=== PATIENT | female | born 1955 | race Caucasian/White ===

== ENCOUNTER → 2018-12-02 08:05 | Outpatient (CLI) | payer OTHER, SELFPAY ==
--- NOTE | 2018-12-02 | DI.MG.S_ITS ---
BILATERAL DIGITAL SCREENING MAMMOGRAM 3D/2D WITH CAD: 12/02/2018 CLINICAL: Routine screening. Family history of breast cancer. Comparison is made to exams dated: 11/06/2017 mammogram, 09/18/2016 mammogram, and 09/17/2015 mammogram - [facility]. There are scattered fibroglandular elements in both breasts. Current study was also evaluated with a Computer Aided Detection (CAD) system. No significant masses, calcifications, or other findings are seen in either breast. There has been no significant interval change. IMPRESSION: NEGATIVE There is no mammographic evidence of malignancy. A 1 year screening mammogram is recommended. This exam was interpreted at Station ID: [id number]. NOTE: For mammograms, a report in lay terms will be sent to the patient. Approximately 15% of breast malignancies will not be visualized mammographically. In the management of a palpable breast mass, a negative mammogram must not discourage biopsy of a clinically suspicious lesion. Electronically Signed By: Celso storey/vladimir:12/02/2018 15:59:12 letter sent: Normal Exam ACR BI-RADS Category 1: Negative [id number]
== END ==
PROVIDERS: Family Provider Physician Assistant; PCP Physician Assistant; Visit Provider Physician Assistant
DX: Z12.31 Encounter for screening mammogram for malignant neoplasm of breast (principal); Z80.3 Family history of malignant neoplasm of breast
CPT/HCPCS: 77063; 77067

== ENCOUNTER → 2020-04-30 13:40 | Outpatient (CLI) | payer OTHER, SELFPAY | PROVIDERS: Family Provider Physician Assistant; PCP Nurse Practitioner Family; Referring Provider Physician Assistant; Visit Provider Physician Assistant | DX: M85.852 Other specified disorders of bone density and structure, left thigh (principal); Z78.0 Asymptomatic menopausal state; E28.39 Other primary ovarian failure; Z82.62 Family history of osteoporosis; Z87.891 Personal history of nicotine dependence | CPT/HCPCS: 77080 ==

== ENCOUNTER → 2020-05-12 09:36 | Outpatient (CLI) | payer OTHER, SELFPAY ==
--- NOTE | 2020-05-12 | DI.RAD.S_ITS ---
PROCEDURE: XR THORACIC SPINE 2V INDICATIONS: LBP TECHNIQUE: 3 views of the thoracic spine were acquired. COMPARISON: [facility], , THORACIC SPINE 3 VIEWS, 08/01/2007, 11:12. FINDINGS: Bones: No fractures or dislocations. No suspicious bony lesions. Diffuse spondylosis and bulky osteophyte formation Soft tissues: No paravertebral stripe thickening. IMPRESSION: No fracture Diffuse spondylosis Dictated by: Gumaro Cooper M.D. on 05/12/2020 at 10:29 Approved by: Gumaro Cooper M.D. on 05/12/2020 at 10:30
--- NOTE | 2020-05-12 | DI.RAD.S_ITS ---
PROCEDURE: XR LUMBAR SPINE 2-3V INDICATIONS: LBP TECHNIQUE: 3 views of the lumbar spine were acquired. COMPARISON: None. FINDINGS: Bones: No fracture or focal osseous destruction. Multilevel degenerative endplate sclerosis and spurring. Diffuse facet arthropathy. Straightening of the normal lordotic curvature. Grade 1 anterolisthesis of L4 on L5. Mild diffuse narrowing of the lumbar disc spaces Soft tissues: Overlying bowel gas pattern is normal. No suspicious soft tissue calcifications. IMPRESSION: Grade 1 anterolisthesis of L4-L5. Diffuse mild lumbar spondylosis and facet arthropathy Dictated by: Gumaro Cooper M.D. on 05/12/2020 at 10:30 Approved by: Gumaro Cooper M.D. on 05/12/2020 at 10:34
--- NOTE | 2020-05-12 | DI.RAD.S_ITS ---
PROCEDURE: XR SACRUM COCCYX MIN 2V INDICATIONS: LBP TECHNIQUE: 3 views of the sacrum and coccyx acquired. COMPARISON: None. FINDINGS: Bones: No fractures or dislocations. No suspicious bony lesions. Mild sacroiliac scattered subchondral sclerosis. Subtle focal lucencies along the right SI joint Soft tissues: Visualized bowel gas pattern is normal. No suspicious soft tissue densities. IMPRESSION: Mild degenerative sacroiliac sclerosis, without ankylosis. Subtle focal lucencies along the right SI joint raise the possibility of early erosion although technically nonspecific. This can be further assessed with dedicated MRI as clinically warranted. Dictated by: Gumaro Cooper M.D. on 05/12/2020 at 10:57 Approved by: Gumaro Cooper M.D. on 05/12/2020 at 11:11
== END ==
PROVIDERS: Family Provider Physician Assistant; PCP Physician Assistant; Referring Provider Physician Assistant; Visit Provider Physician Assistant
DX: M54.6 Pain in thoracic spine (principal); M54.5 Low back pain; M47.814 Spondylosis without myelopathy or radiculopathy, thoracic region; M47.816 Spondylosis without myelopathy or radiculopathy, lumbar region; M43.16 Spondylolisthesis, lumbar region; R25.2 Cramp and spasm
CPT/HCPCS: 72070; 72100; 72220

== ENCOUNTER → 2024-03-06 06:52 | Outpatient (CLI) | payer MEDICARE, OTHER, SELFPAY ==
--- NOTE | 2024-03-06 06:54 | DI.MG.S_ITS ---
BILATERAL DIGITAL SCREENING MAMMOGRAM 3D/2D WITH CAD: 03/06/2024 CLINICAL: Routine screening. Comparison is made to exams dated: 09/05/2022 mammogram - [facility], 12/02/2018 mammogram, and 11/06/2017 mammogram - [facility]. There are scattered areas of fibroglandular density in both breasts (category b / 25%-50% glandular tissue). Current study was also evaluated with a Computer Aided Detection (CAD) system. No significant masses, calcifications, or other findings are seen in either breast. There has been no significant interval change. IMPRESSION: NEGATIVE There is no mammographic evidence of malignancy. A 1 year screening mammogram is recommended. Based on the Tyrer Cuzick model (a risk assessment model) the patient's lifetime risk is 7.1% and her 10 year risk is 3.9%. According to the ACR, ACS, and NCCN guidelines, an annual breast MRI exam along with mammogram is recommended if the patient's lifetime risk is 20% or greater. This exam was interpreted at Station ID: [id number]. NOTE: For mammograms, a report in lay terms will be sent to the patient. Approximately 15% of breast malignancies will not be visualized mammographically. In the management of a palpable breast mass, a negative mammogram must not discourage biopsy of a clinically suspicious lesion. Electronically Signed By: Rachel Nielson M.D., Ph.D. flash/vladimir:03/06/2024 22:36:55 letter sent: Normal Exam ACR BI-RADS Category 1: Negative 3341F
== END ==
LOC: MAMMO 06:53
PROVIDERS: Family Provider Physician Assistant; PCP Nurse Practitioner Family; Referring Provider Nurse Practitioner Family; Visit Provider Nurse Practitioner Family
DX: Z12.31 Encounter for screening mammogram for malignant neoplasm of breast (principal); R92.323 Mammographic fibroglandular density, bilateral breasts
CPT/HCPCS: 77063; 77067

== ENCOUNTER 2025-03-06 23:31 | Emergency (ER) | payer MEDICARE, OTHER, SELFPAY ==
[2025-03-06 23:54] VITALS: BP 165/81; PULSE 88; RESP 17; TEMP 36.4; O2SAT 97; BMI 32.5
[2025-03-07] VITALS (8 sets, daily range): BP systolic 138–150; BP diastolic 72; PULSE 78–90; O2SAT 88–98
[2025-03-07 01:18] LABS: Bacteria Urine None Seen; Culture Indicated Urine Cult Not Indicated; RBC Urine 0-1/HPF (0-5/HPF); Squamous Epithelial Cell Urine 0-1 /HPF (0-5/HPF); Urine Volume 10mL (spun); WBC Urine None Seen (0-5/HPF)
--- NOTE | 2025-03-07 02:44 | ED.BACK ---
HPI - Back Pain/Injury General Chief Complaint: Back Pain/Injury Stated Complaint: back px Time Seen by Provider: 03/07/25 02:32 Source: patient History of Present Illness HPI Narrative: 70-year-old woman with no significant medical history presents with 36 hours of right flank and back pain radiating into the right side of her abdomen with complaints of abdominal distention bloating and tenderness. She had a normal bowel movement this morning. He has had 2 brief episodes of vaginal itching resolve spontaneously. No fevers, chills no actual vomiting. No unexplained weight loss, chest pain, palpitations or dyspnea. Related Data Home Medications Medication Instructions Recorded Confirmed acetaminophen 325 mg tablet 325 mg PO Q6H PRN 12/18/19 01/23/20 (Tylenol) Previous Rx's Medication Instructions Recorded clonazepam 1 mg tablet 0.5 - 1 mg (0.5 - 1 x 1 mg) PO HS 08/12/18 #60 tabs cyclobenzaprine 10 mg tablet 10 mg PO BEDTIME #30 tabs 12/11/19 naproxen 500 mg tablet 500 mg PO BID #60 tabs 12/18/19 tizanidine 2 mg tablet See Rx Instructions PO TID PRN 01/23/20 muscle spasticity #30 tabs oxycodone-acetaminophen 5 mg-325 1 tab PO Q6H PRN pain #14 tabs 03/07/25 mg tablet Allergies Allergy/AdvReac Type Severity Reaction Status Date / Time tramadol [TRAMADOL] Allergy Severe HALLUCINATIONS Verified 01/23/20 11:36 AND NIGHTMARES morphine [MORPHINE] Allergy Unknown PT STATES Verified 01/23/20 11:36 THAT THE REST OF HER FAMILY IS ALLERGIC TO IT Review of Systems Review of Systems Narrative: Pertinent positive and negative findings as per HPI Patient History Medical History (Updated 03/07/25 @ 06:12 by Caterina Clark MD) Osteopenia (04/2020) Family History (Updated 05/03/17 @ 00:00 by Rowan Kolb PA-C) Mother Arthritis Essential hypertension Hypothyroidism Hyperlipidemia Grandmother Rheumatoid arthritis Social History Smoking Status: Never smoker Smoking Status: Never smoker Exam Initial Vital Signs Initial Vital Signs: Vital Signs Temperature 97.5 F L 03/06/25 23:54 Pulse Rate 88 03/06/25 23:54 Respiratory Rate 17 03/06/25 23:54 Blood Pressure 165/81 H 03/06/25 23:54 Pulse Oximetry 97 03/06/25 23:54 Oxygen Delivery Method Room Air 03/06/25 23:54 General: Healthy appearing, in mild pain, standing up in the room as this is more comfortable for her. Able to give a complete and coherent history. Well-nourished well-developed HEENT: Moist mucous membranes, normal sclera with reactive pupils, Respiratory: Lungs are clear to auscultation, no wheezing no rales no rhonchi. Full and symmetrical air movement Cardiac: Regular rate and rhythm no murmurs no bruits Abdomen: Soft, mildly distended, mild right lower quadrant tenderness, no rebound or guarding, tender in the right flank without paraspinous spasm or tenderness along the thoracic spine. Skin: Warm and dry, no rashes in areas of describe pain Neurologic: Grossly neurologically intact with no obvious asymmetries or abnormalities Extremities: No trauma, well perfused Psych: Cooperative, appropriate insight and affect Course Orders Ordered: ED Orders 03/07/25 00:30 Urine Microscopic Stat 03/07/25 02:51 CT abdomen pelvis w con Stat 03/07/25 03:08 Complete Blood Count AUTO DIFF Stat Comprehensive Metabolic Panel Stat Lactate (Lactic Acid) Stat Magnesium Stat 03/07/25 03:15 Urinalysis and Microscopic Stat Hydromorphone HCl (Hydromorphone 0.5 Mg Inj) 0.5 mg IV Q15MIN PRN PRN Reason: Pain, Last Admin: 03/07/25 03:06 Dose: 0.5 mg Documented By: MR Discontinued Medications Sodium Chloride (Normal Saline 0.9%) 1,000 mls @ 1,000 mls/hr IV BOLUS ONE Stop: 03/07/25 03:50 Last Infusion: 03/07/25 03:55 Dose: Infused Documented By: Admin: 03/07/25 03:06 Dose: 1,000 mls/hr Documented By: Ondansetron HCl (Ondansetron 4 Mg/2 Ml Inj) 4 mg IV NOW ONE Stop: 03/07/25 02:52 Last Admin: 03/07/25 03:05 Dose: 4 mg Documented By: MR Vital Signs Vital signs: Vital Signs - 8 hr 03/06/25 23:54 03/07/25 03:37 03/07/25 03:58 Temperature 97.5 F L Pulse Rate 88 78 80 Respiratory Rate 17 Blood Pressure 165/81 H Pulse Oximetry 97 88 L 94 Oxygen Delivery Method Room Air 03/07/25 04:11 03/07/25 04:11 03/07/25 04:30 Temperature Pulse Rate 90 84 Respiratory Rate Blood Pressure 150/72 H Pulse Oximetry 95 93 Oxygen Delivery Method 03/07/25 05:00 03/07/25 05:30 Temperature Pulse Rate 85 81 Respiratory Rate Blood Pressure Pulse Oximetry 88 L 92 Oxygen Delivery Method MDM - Back Pain/Injury Lab Data 03/07/25 03:08 03/07/25 03:08 Labs: Lab Results 03/07/25 03/07/25 Range/Units 00:30 03:08 WBC 5.6 (4.5-11.0) X10^3/uL RBC 4.41 (4.0-5.2) X10^6/uL Hgb 14.1 (12.0-16.0) g/dL Hct 41.3 (36-46) % MCV 93.7 (80-100) fL MCH 32.0 (26-34) PG MCHC 34.2 (30-36) % RDW 12.8 (11.6-14.8) % Plt Count 249 (150-400) X10^3/uL Neut % (Auto) 46.6 L (50-75) % Lymph % (Auto) 39.7 (25-40) % Colbert % (Auto) 7.6 (3-14) % Eos % (Auto) 4.9 H (2-4) % Baso % (Auto) 1.2 (0-2) % Neut # (Auto) 2600 (2091-9060) /uL Lymph # (Auto) 2200 (9129-3959) /uL Colbert # (Auto) 400 (0-900) /uL Eos # (Auto) 300 (0-450) /uL Baso # (Auto) 100 (0-100) /uL Sodium 140 (137-145) mmol/L Potassium 4.3 (3.4-5.1) mmol/L Chloride 105 (98-107) mmol/L Carbon Dioxide 25 (22-32) mmol/L BUN 24 H (7-17) mg/dL Creatinine 0.81 (0.52-1.04) mg/dL Estimated GFR > 60 (>60) mL/min BUN/Creatinine Ratio 29.6 H (6-22) Glucose 99 (80-110) mg/dL Lactate 0.9 (0.7-2.1) mmol/L Calcium 9.9 (8.4-10.2) mg/dL Magnesium 2.0 (1.6-2.3) mg/dL Total Bilirubin 1.3 (0.2-1.3) mg/dL AST 33 (14-36) IU/L ALT 28 (<35) IU/L Alkaline Phosphatase 63 (38-126) U/L Total Protein 8.0 (6.3-8.2) g/dL Albumin 4.7 (3.5-5.0) g/dL Globulin 3.3 (1.7-4.1) g/dL Albumin/Globulin Ratio 1.4 (1.0-2.8) Urine RBC 0-1/hpf (0-5/HPF) Urine WBC None seen (0-5/HPF) Ur Squamous Epith Cells 0-1 /hpf (0-5/HPF) Urine Bacteria None seen (None) Ur Culture Indicated? Cult not indicated Vol Urine Centrifuged 10ml (spun) Urine Dip Bedside Urine Glucose Negative Bedside Urine Bilirubin - Negative Bedside Urine Ketone - Negative Urine Specific Masterson 1.030 Bedside Urine Occult Blood +/- Bedside Urine pH 6.0 Bedside Urine Protein - Negative Bedside Urine Urobilinogen - Negative Bedside Urine Nitrite - Negative Bedside Urine Leukocytes - Negative Esterase MDM Narrative Medical decision making narrative: CC: Right flank and right-sided abdominal pain Data collected from: patient Differential considered: Kidney stone, constipation, patient has already had her appendix removed, neoplastic process Exam documented above, pertinent findings include: Patient is alert and appropriate. Tender in the right flank radiating into the right lower quadrant without rebound or guarding. No skin changes to suggest zoster Lab Test results independently reviewed as above. Pertinent findings: CBC is unremarkable Chemistries are reassuring Imaging studies independently reviewed: CT scan of the abdomen shows cholelithiasis without acute cholecystitis. No other obvious findings. No kidney abnormalities or kidney stones Treatments: Half a mg of Dilaudid, 1 L of saline, 4 mg of Zofran Discussion: 70-year-old woman with right sided abdominal pain radiating through to the flank. CT scan suggests gallbladder colic as the source of her pain. No acute cholecystitis. No pyelonephritis, kidney stones or hydronephrosis. She is not particularly constipated, no other explanations for her symptoms are otherwise appreciated. Have suggested outpatient follow up with our general surgery clinic to discuss possibility of elective cholecystectomy. Questions are answered. We discussed treatment as following the lowest fat diet as possible to minimize symptoms. Discharge Plan Departure Patient Disposition: Home Clinical Impression: Gallbladder colic Instructions: DI for Gallstones Activity Restrictions/Additional Instructions: Thank you for coming in today Your workup did not show signs of significant bacterial infection, no acute surgical findings such as masses, tumors or obstructions. There were no kidney stones or kidney issues found CT scan does show gallstones in your gallbladder without obstruction or acute gallbladder infection Eating the lowest fat diet you are able to tolerate can help decrease the pain symptoms. Using 400 mg of ibuprofen (2 dtiy-enr-zrwdnpa pills) and 1 Tylenol every 6 hours can be very helpful in controlling pain. For severe pain you can use 400 mg of ibuprofen and 1 Percocet. Percocet is a narcotic and can make constipation worse. This prescription was electronically transmitted to [facility] in [place] I would recommend that you follow up with our [facility] office. Please call to schedule an appointment at [phone]. You can explain to them that you are in the emergency department and diagnosed with gallstones and would like to discuss elective outpatient treatment for this If you find that you are getting worse or develop any new symptoms, please feel free to return to the emergency department for further evaluation. Prescriptions: New oxycodone-acetaminophen 5-325 mg tablet 1 tab PO Q6H PRN (Reason: pain) Qty: 14 0RF No Action cyclobenzaprine 10 mg tablet 10 mg PO BEDTIME Qty: 30 0RF clonazepam 1 mg tablet 0.5 - 1 mg PO HS Qty: 60 0RF Rx Instructions: Take one tablet at bedtime as needed for sleep - Must last 60 days (2 months) acetaminophen [Tylenol] 325 mg tablet 325 mg PO Q6H PRN naproxen 500 mg tablet 500 mg PO BID Qty: 60 0RF Rx Instructions: stop other NSAIDs, take with food tizanidine 2 mg tablet See Rx Instructions PO TID PRN (Reason: muscle spasticity) Qty: 30 1RF Rx Instructions: 1-4mg PO three times a day PRN; Referrals: Zohra Campbell ARNP [Primary Care Provider] - Stand Alone Forms: Patient Portal/API/Survey
--- NOTE | 2025-03-07 02:51 | DI.CT.S_ITS ---
PROCEDURE: CT ABDOMEN PELVIS W CON INDICATIONS: Right flank and abdominal pain TECHNIQUE: After the administration of intravenous contrast, axial sections acquired from the lung bases to the pubic symphysis. Coronal and sagittal reformats were performed. For radiation dose reduction, the following was used: automated exposure control, adjustment of mA and/or kV according to patient size. COMPARISON: None. FINDINGS: Image quality: Diagnostic. Lower Chest: No significant findings. ABDOMEN: Liver: No solid mass. Gallbladder: Cholelithiasis without evidence of acute cholecystitis. Biliary ducts: No biliary dilation. Pancreas: No ductal dilation. Spleen: Size is within normal limits. Adrenal Glands: No adrenal nodules. Kidneys and Ureters: No hydronephrosis. No solid mass. No complex renal cystic lesion which requires follow up. Stomach and Bowel: Normal colonic caliber, without significant wall thickening. The appendix is not seen. A few colonic diverticula. Peritoneum: No abnormal intraperitoneal fluid. No free air. Ventral Wall: No significant ventral hernia. Abdominal Nodes: No retroperitoneal or mesenteric adenopathy by size criteria. Vessels: Aorta and inferior vena cava are normal in size. PELVIS: Pelvic Organs: Unremarkable. Bladder: No bladder wall thickening, accounting for underdistention. Pelvic Nodes: No enlarged lymph nodes. Miscellaneous: No inguinal hernias are seen. Bones: No aggressive osseous abnormality. IMPRESSION: Cholelithiasis without evidence of acute cholecystitis. Interpretation is concordant with overnight read. Dictated by: Akhil Ruano M.D. on 03/07/2025 at 8:10 Approved by: Akhil Ruano M.D. on 03/07/2025 at 8:12
[2025-03-07] MEDS: ONDANSETRON 4 MG/2 ML INJ IV (03:05)
[2025-03-07] MEDS: HYDROMORPHONE 0.5 MG INJ IV (03:06)
[2025-03-07] MEDS: SODIUM CHLORIDE 0.9% 1,000 ML 1000 ML IV (03:06)
[2025-03-07 03:14] LABS: Add Manual Diff / Slide Review NO; Basophils Absolute Auto 100 /uL (0-100); Basophils Percent Auto 1.2 % (0-2); Eosinophils Absolute Auto 300 /uL (0-450); Eosinophils Percent Auto 4.9 % (2-4); Hematocrit 41.3 % (36-46); Hemoglobin 14.1 g/dL (12.0-16.0); Lymphocytes Absolute Auto 2200 /uL (1100-4500); Lymphocytes Percent Auto 39.7 % (25-40); Mean Corpuscular HGB Conc 34.2 % (30-36); Mean Corpuscular Volume 93.7 fL (80-100); Monocytes Absolute Auto 400 /uL (0-900); Monocytes Percent Auto 7.6 % (3-14); Neutrophils Absolute Auto 2600 /uL (1500-7000); Neutrophils Percent Auto 46.6 % (50-75); Platelet Count 249 X10^3/uL (150-400); Red Blood Cell Count 4.41 X10^6/uL (4.0-5.2); Red Cell Distribution Width 12.8 % (11.6-14.8); White Blood Cell Count 5.6 X10^3/uL (4.5-11.0)
[2025-03-07 03:42] LABS: Lactate (Lactic Acid) 0.9 mmol/L (0.7-2.1)
[2025-03-07 03:43] LABS: Alanine Aminotransferase 28 IU/L (<35); Albumin 4.7 g/dL (3.5-5.0); Albumin Globulin Ratio 1.4 (1.0-2.8); Alkaline Phosphatase 63 U/L (38-126); Aspartate Aminotransferase 33 IU/L (14-36); BUN Creatinine Ratio 29.6 (6-22); Bilirubin Total 1.3 mg/dL (0.2-1.3); Blood Urea Nitrogen 24 mg/dL (7-17); Calcium 9.9 mg/dL (8.4-10.2); Carbon Dioxide 25 mmol/L (22-32); Chloride 105 mmol/L (98-107); Estimated Glomerular Filt Rate > 60 mL/min (>60); Globulin 3.3 g/dL (1.7-4.1); Glucose 99 mg/dL (80-110); HEMOLYSIS 17 (0-50); Potassium 4.3 mmol/L (3.4-5.1); Sodium 140 mmol/L (137-145)
[2025-03-07] MEDS: OXYCODONE/APAP 5/325 PREPACK 1 BOTTLE MISC (06:31)
== END 2025-03-07 06:33 | disposition home or self-care (01) ==
PROVIDERS: Emergency Provider Emergency Medicine; Family Provider Physician Assistant; PCP Nurse Practitioner Family
DX: K80.20 Calculus of gallbladder without cholecystitis without obstruction (principal)
CPT/HCPCS: 36415; 74177; 80053; 81003; 81015; 83605; 83735; 85025; 96361; 96374; 96375; 99284; J1171; J2405; Q9967

== ENCOUNTER 2025-03-13 06:26 | Day surgery (SDC) | payer MEDICARE, OTHER, SELFPAY ==
[2025-03-11 12:18] VITALS: BMI 32.5
[2025-03-13] VITALS (14 sets, daily range): BP systolic 123–165; BP diastolic 60–92; PULSE 77–92; RESP 13–18; TEMP 36.1–37.2; O2SAT 93–100; BMI 31.7
--- NOTE | 2025-03-13 | PATH_ITS ---
[facility] Accession Number: [id number] No. of containers..01 Tissue . 01 Material submitted: . gallbladder - GALLBLADDER . 01 Diagnosis: GALLBLADDER, CHOLECYSTECTOMY: Mild chronic calculous cholecystitis with cholesterolosis. Negative for dysplasia or malignancy. MRV 03/17/2025 1611 Local . 01 Electronically signed: . Marquis Kelly MD, Pathologist NPI- [id number] . 01 Gross description: . Received in formalin with two identifiers and gallbladder, is an intact gallbladder 7.4 x 3.3 x 2.0 cm with an unremarkabl external surface. The cystic duct margin is inked blue, and no pericystic lymph node is identified. The lumen contains a green bosselated calculus 1.3 cm in greatest dimension not grossly obstructing the cystic duct, and is admixed with green serous bile. The mucosa is green-christina and vevety with yellow areas of discoloration, and no polyps or lesions identified. The grajeda average 0.2 cm thick. Ripening Room Hand sections to include the cystic duct margin and full thickness sections are submitted in cassette A1. ([id number]) /ANGEL 03/14/2025 2317 Local . 01 Pathologist provided ICD-10: K80.20 . 01 CPT . 370354 Specimen Comment: A courtesy copy of this report has been sent to [phone] Performed at: [address] [id number] MD Humberto Lopez MD Phone: [phone]
[2025-03-13] MEDS: ACETAMINOPHEN IV 1,000 MG/100 ML VIAL 400 MG IV (07:07)
[2025-03-13] MEDS: LACTATED RINGERS 1,000 ML 42 ML IV ×2 (07:07→09:37)
--- NOTE | 2025-03-13 07:26 | PM.PREOP ---
Pre-operative Note COVID-19 COVID-19 status: Not tested Interval Note History & Physical reviewed/Exam performed by Physician: Yes Changes to H&P: No ASA Class (for procedural sedation): II
[2025-03-13] MEDS: CEFAZOLIN 2 GM/100 ML PREMIX 100 ML IV (07:56)
[2025-03-13] MEDS: BUPIVACAINE 0.5% W/ EPI (PF) 30 ML VIAL INJ (08:05)
--- NOTE | 2025-03-13 08:06 | SUR.OPER ---
Supine on padded OR bed, head on pillow, safety belt at thigh, bilateral arms secured on padded arm board <90 degrees abduction. Legs uncrossed. Padded footboard in place. Tape over blanket to secure lower legs.
--- NOTE | 2025-03-13 08:50 | PM.OP.1 ---
Operative Date/Time/Diagnoses Date of procedure: 03/13/25 Time of procedure: 08:50 Pre-op diagnosis: Symptomatic cholelithiasis Post-op diagnosis: same Procedure & Clinicians Procedure: Laparoscopic cholecystectomy Same procedure as scheduled: Yes Surgeon: Isaias Latham Cabin Equipment Supervisor: Sina Garvey Anesthesia Type: General Operative Notes Procedure in detail: The patient was given preoperative antibiotics. The patient was brought to the operating room and placed on the table in the supine position. General endotracheal anesthesia was induced. The abdomen was prepped and draped. A time-out was performed. We made a 1 cm supraumbilical incision. We dissected down to the fascia using cautery. We grasped the fascia with a Rohini clamp to elevate the abdominal wall. We scored the fascia in the midline with cautery. We pierced the peritoneum with a Peon clamp. The Maximus port was placed and the abdomen was insufflated to 15 mmHg. A 5 mm 30 degree laparoscopic was inserted. There was no evidence of any injury from the entry. Next, we placed 5 mm ports in the subxiphoid position and right upper quadrant at the midclavicular line and anterior axillary line. The patient was then positioned in reverse Trendelenburg and the table was tilted to the left. The gallbladder was grasped at the dome and retracted cephalad. It was quite dilated but with minimal inflammation or fibrosis. We then dissected the cystic structures with a combination of hook cautery and blunt dissection. We obtained a critical view. We placed clips on the cystic duct and artery and divided the cystic duct and artery sharply between the clips. The gallbladder was then dissected off the liver and placed in a specimen retrieval bag. We irrigated the right upper quadrant and all the aspirate returned clear. We then removed the 5 mm ports under direct vision we removed the Maximus port. We then injected some local into the fascia and closed the fascia with 2 interrupted 0 Vicryl sutures. The skin incisions were closed with 4-0 Monocryl and Steri-Strips were applied. Band-Aids were applied over the Steri-Strips. EBL: 10 mL Specimen: Gallbladder and contents Sina MEDINA provided assistance with exposure, retraction and closure of incisions. Post-operative Condition: stable Disposition: PACU
[2025-03-13] MEDS: OXYCODONE IR 5 MG TABLET PO ×2 (09:11→10:10)
[2025-03-13] MEDS: HYDROMORPHONE 1 MG INJ IV ×5 (09:17→10:12)
[2025-03-13] MEDS: LORazepam 2 MG/ML INJ 0.25 MG IV (09:23)
[2025-03-13] MEDS: KETOROLAC 30 MG/ML VIAL 15 MG IV (09:38)
[2025-03-13] MEDS: fentaNYL 100 MCG/2 ML INJ IV ×2 (09:41→09:59)
[2025-03-13] MEDS: ONDANSETRON 4 MG/2 ML INJ IV ×2 (09:46→11:49)
--- NOTE | 2025-03-13 09:48 | SUR.PHASEI ---
Patient continues to have severe pain after several medications. Requested Demerol IV for post-op shivering and Vistaril IM for muscle spams. Verbal order received from Anesthesiologist Dr Lanza.
[2025-03-13] MEDS: MEPERIDINE 50 MG/ML INJ 12.5 MG IV ×2 (09:50→10:35)
[2025-03-13] MEDS: hydrOXYzine 50 MG/ML INJ 25 MG IM (09:52)
== END 2025-03-13 11:56 | disposition home or self-care (01) ==
PROVIDERS: Family Provider Physician Assistant; PCP Nurse Practitioner Family; Referring Provider Surgery; Visit Provider Surgery
PROC: 0FT44ZZ Resection of Gallbladder, Percutaneous Endoscopic Approach (ICD-10-PCS; CPT 47562; principal; 2025-03-13 07:45)
DX: K80.10 Calculus of gallbladder with chronic cholecystitis without obstruction (principal)
CPT/HCPCS: 47562; J0131; J0690; J1100; J1171; J1885; J2060; J2175; J2405; J2704; J3010; J3410; J3490

== ENCOUNTER → 2025-03-23 11:31 | Outpatient (CLI) | payer MEDICARE, OTHER, SELFPAY | PROVIDERS: PCP Nurse Practitioner Family; Visit Provider Surgery | DX: T81.40XA Infection following a procedure, unspecified, initial encounter (principal) | CPT/HCPCS: 87070; 87075; 87205 ==

== ENCOUNTER → 2025-04-27 11:54 | Outpatient (CLI) | payer MEDICARE, OTHER, SELFPAY ==
--- NOTE | 2025-04-27 13:30 | DI.MRI.S_ITS ---
PROCEDURE: MR ANKLE LT WO CON INDICATIONS: left ankle joint pain after an ankle sprain 5 years ago TECHNIQUE: Noncontrast sagittal T1 spin echo and T2 fast spin echo with fat saturation, axial proton density fast spin echo and T2 fast spin echo with fat saturation, coronal T1 spin echo and T2 fast spin echo with fat saturation through the ankle/hindfoot. COMPARISON: [facility], MR, MR ANKLE LEFT WITHOUT CONTRAST, 11/14/2022, 10:38. [facility], CR, ORTHO-XR ANKLE 3V WB LEFT, 04/27/2025, 9:15. FINDINGS: Image quality: Excellent Tendons: Trace tenosynovitis of the posterior tibialis. The flexor digitorum longus, and the flexor hallucis longus are unremarkable. The extensor tendons are unremarkable. The peroneal tendons are unremarkable. The distal Achilles tendon is intact. Ligaments: The anterior and posterior tibiofibular ligament are intact. Full- thickness tear of the anterior talofibular ligament. The posterior talofibular ligament is intact. The calcaneofibular ligament is intact. Mild sprain of the deep portion deltoid ligament. Sinus tarsi: No fibrosis Plantar fascia: Thickening of the central cord with subjacent muscle edema of the flexor digitorum brevis, representing plantar fasciitis. There is small plantar calcaneal enthesophyte with marrow edema, extending to the plantar calcaneus, representing enthesitis. Low-grade tear of the central cord at the calcaneal insertion. Muscles: Please see above. No fatty atrophy. Bones: Please see above. No acute fracture. Mild degenerative change of the posterior subtalar joint with mild subchondral cystic changes in the posterior talus. Mild degenerative changes of the 2nd tarsometatarsal joint. Small tibiotalar effusion. IMPRESSION: 1. Full-thickness tear of the anterior talofibular ligament. 2. Plantar fasciitis with low-grade tear of the central cord, and small plantar calcaneal enthesophyte with enthesitis, new from prior exam, 3. Mild degenerative change of the posterior subtalar joint with mild subchondral cystic changes, improved from prior exam. Dictated by: Regina Copeland M.D. on 04/28/2025 at 14:37 Approved by: Regina Copeland M.D. on 04/28/2025 at 14:49
== END ==
PROVIDERS: PCP Nurse Practitioner Family; Referring Provider Orthopaedic Surgery; Visit Provider Orthopaedic Surgery
DX: S93.492A Sprain of other ligament of left ankle, initial encounter (principal); M25.372 Other instability, left ankle; M72.2 Plantar fascial fibromatosis; M77.32 Calcaneal spur, left foot
CPT/HCPCS: 73721